=== PATIENT | female | born 1980 | race Two or more races ===

== ENCOUNTER 2023-09-27 12:35 | Inpatient (IN) | payer OTHER ==
[2023-09-27 14:22] VITALS: BMI 20.5
[2023-09-27] MEDS ORDERED: ONDANSETRON *ODT* 4 MG TABLET SL PRN (15:20)
[2023-09-27] MEDS ORDERED: DICYCLOMINE HCL 10 MG CAPSULE PO PRN (15:20)
[2023-09-27] MEDS ORDERED: BISMUTH SUBSALICYLATE 524 MG/30 ML PO PRN (15:20)
[2023-09-27] MEDS ORDERED: NICOTINE POLACRILEX 2 MG GUM BUC PRN (15:20)
[2023-09-27] MEDS ORDERED: chlordiazePOXIDE HCL 25 MG CAPSULE PO PRN (15:20)
[2023-09-27] MEDS ORDERED: ACETAMINOPHEN 325 MG TABLET (FP) PO PRN (15:20)
[2023-09-27] MEDS ORDERED: IBUPROFEN 600 MG TABLET (FP) PO PRN (15:20)
[2023-09-27] MEDS ORDERED: MAGNESIUM HYDROX 2400MG/30ML ORAL SUSPENSION 30 ML CUP PO PRN (15:20)
[2023-09-27] MEDS ORDERED: NALOXONE HCL 0.4 MG/ML VIAL IM PRN (15:20)
[2023-09-27] MEDS ORDERED: LOPERAMIDE HCL 2 MG CAPSULE PO PRN (15:20)
[2023-09-27] MEDS ORDERED: BENZOCAINE/MENTHOL (CHLORASEPTIC ) LOZENGE MM PRN (15:20)
[2023-09-27] MEDS ORDERED: guaiFENesin 600 MG TABLET.ER (FP) PO PRN (15:20)
[2023-09-27] MEDS ORDERED: POLYETHYLENE GLYCOL (HEALTHYLAX) 3350 17 GM PACKET PO PRN (15:20)
[2023-09-27] MEDS ORDERED: IBUPROFEN 400 MG TABLET (FP) PO PRN (15:20)
[2023-09-27] MEDS ORDERED: MAG HYDROX/AL HYDROX/SIMETH 30 ML UNIT-DOSE CUP PO PRN (15:20)
[2023-09-27] MEDS ORDERED: BENZONATATE 200 MG CAPSULE PO PRN (15:20)
[2023-09-27] MEDS ORDERED: NALOXONE HCL (KLOXXADO) 8 MG SPRAY NS PRN (15:20)
[2023-09-27] MEDS ORDERED: chlordiazePOXIDE HCL 25 MG CAPSULE ONE (16:41)
[2023-09-27] MEDS: chlordiazePOXIDE HCL 25 MG CAPSULE PO SCH ×2 (16:47→22:28)
[2023-09-27] MEDS: hydrOXYzine PAMOATE 25 MG CAPSULE (FP) PO PRN (18:08)
[2023-09-27] MEDS: MELATONIN 5 MG TABLETS PO SCH (22:28)
[2023-09-27] MEDS: THIAMINE HCL 100 MG TABLET (FP) PO SCH (22:29)
[2023-09-28] MEDS: chlordiazePOXIDE HCL 25 MG CAPSULE PO SCH ×4 (05:14→22:27)
[2023-09-28] MEDS: hydrOXYzine PAMOATE 25 MG CAPSULE (FP) PO PRN ×3 (10:09→22:27)
[2023-09-28] MEDS: PRENATAL VITAMINS W/ FOLIC ACID TABLET (FP) PO SCH (10:09)
[2023-09-28 11:14] LABS: CHLORIDE 105 mmol/L (98-107); POTASSIUM 4.4 mmol/L (3.5-5.1); SODIUM 138 mmol/L (136-145)
[2023-09-28 11:18] LABS: GLUCOSE,RANDOM 105 mg/dL (74-106)
[2023-09-28 11:19] LABS: CALCIUM 9.7 mg/dL (8.5-10.1)
[2023-09-28 11:20] LABS: ALBUMIN 3.7 g/dl (3.4-5.0); ANION GAP 5 mmol/L (4-13); BLOOD UREA NITROGEN 12.9 mg/dL (7-18); CO2 28 mmol/L (21-32)
[2023-09-28 11:22] LABS: CREATININE 0.6 mg/dL (0.55-1.3); SGOT/AST 106 U/L (15-37); SGPT/ALT 92 U/L (13-61)
[2023-09-28 11:23] LABS: BILIRUBIN,TOTAL 0.8 mg/dL (0.2-1)
[2023-09-28 11:24] LABS: ALK PHOS 151 U/L (45-117); TOT PROT 7.2 g/dl (6.4-8.2)
[2023-09-28 11:33] LABS: HEMATOCRIT 38.8 % (32.4-45.2); MCH 31.5 pg (25.7-33.7); MCHC 33.6 g/dl (32.0-36.0); MEAN CELL VOLUME 93.7 fl (80-96); MEAN PLT VOLUME 7.7 fl (7.5-11.1); PLATELET COUNT 211 10^3/uL (134-434); RBC 4.14 M/mm3 (3.60-5.2); RDW 13.4 % (11.6-15.6); WHITE BLOOD COUNT 3.4 K/mm3 (4.0-10.0)
[2023-09-28] MEDS: MELATONIN 5 MG TABLETS PO SCH (22:26)
[2023-09-28] MEDS: THIAMINE HCL 100 MG TABLET (FP) PO SCH (22:26)
[2023-09-29] MEDS: chlordiazePOXIDE HCL 25 MG CAPSULE PO SCH ×4 (05:45→22:06)
[2023-09-29] MEDS: hydrOXYzine PAMOATE 25 MG CAPSULE (FP) PO PRN (05:46)
[2023-09-29] MEDS: METHOCARBAMOL 500 MG TABLET PO PRN (10:13)
[2023-09-29] MEDS: amLODIPine BESYLATE 10 MG TABLET (FP) PO SCH (10:13)
[2023-09-29] MEDS: PRENATAL VITAMINS W/ FOLIC ACID TABLET (FP) PO SCH (10:13)
[2023-09-29] MEDS: THIAMINE HCL 100 MG TABLET (FP) PO SCH (22:06)
[2023-09-29] MEDS: MELATONIN 5 MG TABLETS PO SCH (22:06)
[2023-09-30] MEDS ORDERED: chlordiazePOXIDE HCL 10 MG CAPSULE PO PRN
[2023-09-30] MEDS: hydrOXYzine PAMOATE 25 MG CAPSULE (FP) PO PRN ×2 (00:06→22:20)
[2023-09-30] MEDS: METHOCARBAMOL 500 MG TABLET PO PRN (00:06)
[2023-09-30] MEDS: chlordiazePOXIDE HCL 10 MG CAPSULE PO SCH ×4 (05:30→22:19)
[2023-09-30] MEDS: PRENATAL VITAMINS W/ FOLIC ACID TABLET (FP) PO SCH (10:23)
[2023-09-30] MEDS: amLODIPine BESYLATE 10 MG TABLET (FP) PO SCH (10:23)
[2023-09-30] MEDS ORDERED: SUVOREXANT 10 MG TABLET PO PRN (22:00)
[2023-09-30] MEDS: THIAMINE HCL 100 MG TABLET (FP) PO SCH (22:19)
[2023-10-01] MEDS: chlordiazePOXIDE HCL 10 MG CAPSULE PO SCH ×2 (05:38→17:24)
[2023-10-01] MEDS: amLODIPine BESYLATE 10 MG TABLET (FP) PO SCH (09:13)
[2023-10-01] MEDS: PRENATAL VITAMINS W/ FOLIC ACID TABLET (FP) PO SCH (09:13)
[2023-10-01] MEDS: hydrOXYzine PAMOATE 25 MG CAPSULE (FP) PO PRN ×3 (10:23→22:21)
[2023-10-01] MEDS ORDERED: SUVOREXANT 15 MG TABLET PO PRN (22:00)
[2023-10-01] MEDS: THIAMINE HCL 100 MG TABLET (FP) PO SCH (22:19)
[2023-10-01] MEDS: METHOCARBAMOL 500 MG TABLET PO PRN (22:21)
[2023-10-02] MEDS ORDERED: chlordiazePOXIDE HCL 10 MG CAPSULE PO ONE (05:00)
[2023-10-02] MEDS: hydrOXYzine PAMOATE 25 MG CAPSULE (FP) PO PRN (05:31)
[2023-10-02 08:53] VITALS: BP 123/82; PULSE 87; RESP 16; TEMP 97.3
[2023-10-02] MEDS: PRENATAL VITAMINS W/ FOLIC ACID TABLET (FP) PO SCH (09:07)
[2023-10-02] MEDS: amLODIPine BESYLATE 10 MG TABLET (FP) PO SCH (09:07)
== END 2023-10-02 10:30 | disposition home or self-care (01) | DRG 775 ==
LOC: YASAS 12:35 → Y6N 15:50
PROVIDERS: ADMIT Allergy & Immunology; ATTEND Surgery
PROC: HZ2ZZZZ Detoxification Services for Substance Abuse Treatment (ICD-10-PCS; principal; 2023-09-26)
DX: F10.230 Alcohol dependence with withdrawal, uncomplicated (principal); F17.210 Nicotine dependence, cigarettes, uncomplicated; F10.282 Alcohol dependence with alcohol-induced sleep disorder; F10.24 Alcohol dependence with alcohol-induced mood disorder; F41.9 Anxiety disorder, unspecified; F32.A Depression, unspecified; I10 Essential (primary) hypertension; Z62.810 Personal history of physical and sexual abuse in childhood; Z91.410 Personal history of adult physical and sexual abuse
CPT/HCPCS: 36415; 80053; 80307; 81025; 85027; 86780; 87635

== ENCOUNTER 2023-12-01 11:17 | Inpatient (IN) | payer OTHER ==
[2023-12-01 12:24] VITALS: BMI 22.3
[2023-12-01] MEDS ORDERED: IBUPROFEN 400 MG TABLET (FP) PO PRN (13:34)
[2023-12-01] MEDS ORDERED: NALOXONE HCL (KLOXXADO) 8 MG SPRAY NS PRN (13:34)
[2023-12-01] MEDS ORDERED: BENZONATATE 200 MG CAPSULE PO PRN (13:34)
[2023-12-01] MEDS ORDERED: POLYETHYLENE GLYCOL (HEALTHYLAX) 3350 17 GM PACKET PO PRN (13:34)
[2023-12-01] MEDS ORDERED: MAG HYDROX/AL HYDROX/SIMETH 30 ML UNIT-DOSE CUP PO PRN (13:34)
[2023-12-01] MEDS ORDERED: BENZOCAINE/MENTHOL (CHLORASEPTIC ) LOZENGE MM PRN (13:34)
[2023-12-01] MEDS ORDERED: guaiFENesin 600 MG TABLET.ER (FP) PO PRN (13:34)
[2023-12-01] MEDS ORDERED: NALOXONE HCL 0.4 MG/ML VIAL IM PRN (13:34)
[2023-12-01] MEDS ORDERED: LOPERAMIDE HCL 2 MG CAPSULE PO PRN (13:34)
[2023-12-01] MEDS ORDERED: MAGNESIUM HYDROX 2400MG/30ML ORAL SUSPENSION 30 ML CUP PO PRN (13:34)
[2023-12-01] MEDS ORDERED: IBUPROFEN 600 MG TABLET (FP) PO PRN (13:34)
[2023-12-01] MEDS ORDERED: NICOTINE POLACRILEX 2 MG GUM BUC PRN (13:34)
[2023-12-01] MEDS ORDERED: ACETAMINOPHEN 325 MG TABLET (FP) PO PRN (13:34)
[2023-12-01] MEDS ORDERED: BISMUTH SUBSALICYLATE 524 MG/30 ML PO PRN (13:34)
[2023-12-01] MEDS ORDERED: DICYCLOMINE HCL 10 MG CAPSULE PO PRN (13:34)
[2023-12-01] MEDS ORDERED: chlordiazePOXIDE HCL 25 MG CAPSULE ONE (14:06)
[2023-12-01] MEDS: chlordiazePOXIDE HCL 25 MG CAPSULE PO PRN (14:13)
[2023-12-01] MEDS: hydrOXYzine PAMOATE 25 MG CAPSULE (FP) PO PRN (14:37)
[2023-12-01] MEDS: chlordiazePOXIDE HCL 25 MG CAPSULE PO SCH (16:52)
[2023-12-01 17:45] LABS: HIV INTERPRETATION NEGATIVE (NEGATIVE)
[2023-12-01] MEDS: ONDANSETRON *ODT* 4 MG TABLET SL PRN (19:29)
[2023-12-01] MEDS: MELATONIN 5 MG TABLETS PO SCH (22:12)
[2023-12-01] MEDS: THIAMINE HCL 100 MG TABLET (FP) PO SCH (22:12)
[2023-12-02 09:49] VITALS: RESP 16
[2023-12-02] MEDS: PRENATAL VITAMINS W/ FOLIC ACID TABLET (FP) PO SCH (10:10)
[2023-12-02] MEDS: amLODIPine BESYLATE 10 MG TABLET (FP) PO SCH (10:10)
[2023-12-02] MEDS: NICOTINE 14 MG/24 HOURS TOPICAL PATCH TD SCH (10:10)
[2023-12-02 11:44] LABS: POTASSIUM 4.3 mmol/L (3.5-5.1)
[2023-12-02 11:49] LABS: BLOOD UREA NITROGEN 10.8 mg/dL (7-18); CALCIUM 9.2 mg/dL (8.5-10.1)
[2023-12-02 11:52] LABS: CREATININE 0.7 mg/dL (0.55-1.3)
[2023-12-02 11:54] LABS: BILIRUBIN,TOTAL 0.5 mg/dL (0.2-1); TOT PROT 8.3 g/dl (6.4-8.2)
[2023-12-02 12:03] LABS: HEMATOCRIT 38.1 % (32.4-45.2); HEMOGLOBIN 12.6 GM/dL (10.7-15.3); MCH 30.4 pg (25.7-33.7); MCHC 33.1 g/dl (32.0-36.0); MEAN CELL VOLUME 91.8 fl (80-96); MEAN PLT VOLUME 7.4 fl (7.5-11.1); PLATELET COUNT 197 10^3/uL (134-434); RBC 4.15 M/mm3 (3.60-5.2); RDW 12.6 % (11.6-15.6); WHITE BLOOD COUNT 5.9 K/mm3 (4.0-10.0)
[2023-12-02 13:25] VITALS: BP 140/82; PULSE 90; TEMP 96.9
[2023-12-02] MEDS: METHOCARBAMOL 500 MG TABLET PO PRN (16:48)
[2023-12-03] MEDS ORDERED: chlordiazePOXIDE HCL 25 MG CAPSULE PO SCH (05:00)
[2023-12-04] MEDS ORDERED: chlordiazePOXIDE HCL 10 MG CAPSULE PO PRN
[2023-12-04] MEDS ORDERED: chlordiazePOXIDE HCL 10 MG CAPSULE PO SCH (05:00)
[2023-12-05] MEDS ORDERED: chlordiazePOXIDE HCL 10 MG CAPSULE PO SCH (05:00)
[2023-12-06] MEDS ORDERED: chlordiazePOXIDE HCL 10 MG CAPSULE PO ONE (05:00)
== END 2023-12-02 16:55 | disposition left against medical advice (07) | DRG 770 ==
LOC: YASAS 11:17 → Y3N 13:58
PROVIDERS: ADMIT Allergy & Immunology; ATTEND Allergy & Immunology
PROC: HZ2ZZZZ Detoxification Services for Substance Abuse Treatment (ICD-10-PCS; principal; 2023-12-01)
DX: F10.230 Alcohol dependence with withdrawal, uncomplicated (principal); F12.20 Cannabis dependence, uncomplicated; F17.210 Nicotine dependence, cigarettes, uncomplicated; F32.A Depression, unspecified; I10 Essential (primary) hypertension; Z62.810 Personal history of physical and sexual abuse in childhood; Z91.410 Personal history of adult physical and sexual abuse; Z63.8 Other specified problems related to primary support group; Z91.199 Patient's noncompliance with other medical treatment and regimen due to unspecified reason
CPT/HCPCS: 36415; 80053; 80307; 85027; 86780; 87389; 87635; 87811; Q0162

== ENCOUNTER 2024-05-03 10:29 | Inpatient (IN) | payer OTHER ==
[2024-05-03] MEDS: chlordiazePOXIDE HCL 25 MG CAPSULE PO ONE (00:42)
[2024-05-03 11:09] VITALS: BMI 22.3
[2024-05-03] MEDS ORDERED: BISMUTH SUBSALICYLATE 262 MG/15 ML BTL PO PRN (11:46)
[2024-05-03] MEDS ORDERED: POLYETHYLENE GLYCOL (HEALTHYLAX) 3350 17 GM PACKET PO PRN (11:46)
[2024-05-03] MEDS ORDERED: IBUPROFEN 600 MG TABLET (FP) PO PRN (11:46)
[2024-05-03] MEDS ORDERED: NALOXONE HCL 0.4 MG/ML VIAL IM PRN (11:46)
[2024-05-03] MEDS ORDERED: NALOXONE (NARCAN) HCL 4 MG/0.1 ML SPRAY NS PRN (11:46)
[2024-05-03] MEDS ORDERED: chlordiazePOXIDE HCL 25 MG CAPSULE PO PRN (11:46)
[2024-05-03] MEDS ORDERED: guaiFENesin 600 MG TABLET.ER (FP) PO PRN (11:46)
[2024-05-03] MEDS ORDERED: MAGNESIUM HYDROX 2400MG/30ML ORAL SUSPENSION 30 ML CUP PO PRN (11:46)
[2024-05-03] MEDS ORDERED: IBUPROFEN 400 MG TABLET (FP) PO PRN (11:46)
[2024-05-03] MEDS ORDERED: BENZONATATE 200 MG CAPSULE PO PRN (11:46)
[2024-05-03] MEDS ORDERED: BENZOCAINE/MENTHOL (CHLORASEPTIC ) LOZENGE MM PRN (11:46)
[2024-05-03] MEDS ORDERED: ACETAMINOPHEN 325 MG TABLET (FP) PO PRN (11:46)
[2024-05-03] MEDS ORDERED: LOPERAMIDE HCL 2 MG CAPSULE PO PRN (11:46)
[2024-05-03] MEDS ORDERED: ONDANSETRON *ODT* 4 MG TABLET ONE (12:49)
[2024-05-03] MEDS ORDERED: chlordiazePOXIDE HCL 25 MG CAPSULE ONE (12:49)
[2024-05-03] MEDS: amLODIPine BESYLATE 10 MG TABLET (FP) PO SCH (12:57)
[2024-05-03] MEDS: ONDANSETRON *ODT* 4 MG TABLET SL PRN (13:03)
[2024-05-03] MEDS: PRENATAL VITAMINS W/ FOLIC ACID TABLET (FP) PO SCH (13:03)
[2024-05-03] MEDS ORDERED: amLODIPine BESYLATE 5 MG TABLET (FP) ONE (13:11)
[2024-05-03] MEDS: hydrOXYzine PAMOATE 25 MG CAPSULE (FP) PO PRN (14:49)
[2024-05-03] MEDS: chlordiazePOXIDE HCL 25 MG CAPSULE PO SCH (17:27)
[2024-05-03] MEDS: MAG HYDROX/AL HYDROX/SIMETH 30 ML UNIT-DOSE CUP PO PRN (17:28)
[2024-05-03 18:17] LABS: HIV INTERPRETATION NEGATIVE (NEGATIVE)
[2024-05-03] MEDS: MELATONIN 5 MG TABLETS PO SCH (22:14)
[2024-05-03] MEDS: THIAMINE 100 MG TABLET PO SCH (22:14)
[2024-05-03] MEDS: GABAPENTIN 400 MG CAPSULE PO SCH (22:15)
[2024-05-03] MEDS: QUEtiapine FUMARATE 50 MG TABLET PO SCH (22:15)
[2024-05-03] MEDS: DICYCLOMINE HCL 10 MG CAPSULE PO PRN (22:16)
[2024-05-04] MEDS: NICOTINE 7 MG/24 HOURS TOPICAL PATCH TD SCH (10:07)
[2024-05-04 12:57] LABS: HEMATOCRIT 37.8 % (32.4-45.2); HEMOGLOBIN 12.6 GM/dL (10.7-15.3); MCH 32.4 pg (25.7-33.7); MCHC 33.4 g/dl (32.0-36.0); MEAN PLT VOLUME 8.5 fl (7.5-11.1); PLATELET COUNT 111 10^3/uL (134-434); RDW 14.5 % (11.6-15.6)
[2024-05-04 13:07] LABS: ALBUMIN 4.6 g/dl (3.4-5.0)
[2024-05-04 13:09] LABS: CALCIUM 10.2 mg/dL (8.5-10.1)
[2024-05-04 13:11] LABS: BLOOD UREA NITROGEN 7.5 mg/dL (7-18)
[2024-05-04 13:14] LABS: BILIRUBIN,TOTAL 1.1 mg/dL (0.2-1); CREATININE 0.6 mg/dL (0.55-1.3); TOT PROT 8.5 g/dl (6.4-8.2)
[2024-05-04] MEDS: LACTULOSE 20 GM/30 ML UDC (FOR ORAL USE ONLY) PO SCH (17:22)
[2024-05-04] MEDS: LORazepam 2 MG TABLET PO SCH (17:23)
[2024-05-04] MEDS: METHOCARBAMOL 500 MG TABLET PO PRN (22:37)
[2024-05-05] MEDS ORDERED: chlordiazePOXIDE HCL 25 MG CAPSULE PO SCH (05:00)
[2024-05-05 17:01] LABS: POTASSIUM 4.3 mmol/L (3.5-5.1)
[2024-05-05 17:03] LABS: CALCIUM 10.3 mg/dL (8.5-10.1)
[2024-05-05 17:04] LABS: BLOOD UREA NITROGEN 16.3 mg/dL (7-18)
[2024-05-05 17:07] LABS: CREATININE 0.7 mg/dL (0.55-1.3)
[2024-05-05 17:10] LABS: BILIRUBIN,TOTAL 0.7 mg/dL (0.2-1); TOT PROT 7.9 g/dl (6.4-8.2)
[2024-05-05] MEDS: LORazepam 1 MG TABLET PO PRN (19:34)
[2024-05-06] MEDS ORDERED: chlordiazePOXIDE HCL 10 MG CAPSULE PO PRN
[2024-05-06] MEDS ORDERED: chlordiazePOXIDE HCL 10 MG CAPSULE PO SCH (05:00)
[2024-05-06] MEDS: LORazepam 1 MG TABLET PO SCH (05:54)
[2024-05-06 09:37] VITALS: BP 129/81; PULSE 98; RESP 18; TEMP 97.6
[2024-05-07] MEDS ORDERED: LORazepam 0.5 MG TABLET PO SCH (05:00)
[2024-05-07] MEDS ORDERED: chlordiazePOXIDE HCL 10 MG CAPSULE PO SCH (05:00)
[2024-05-08] MEDS ORDERED: chlordiazePOXIDE HCL 10 MG CAPSULE PO ONE (05:00)
[2024-05-08] MEDS ORDERED: LORazepam 0.5 MG TABLET PO ONE (05:00)
== END 2024-05-06 10:23 | disposition other institution (70) | DRG 775 ==
LOC: YASAS 10:29 → Y6N 12:21
PROVIDERS: ADMIT Allergy & Immunology; ATTEND Surgery
PROC: HZ2ZZZZ Detoxification Services for Substance Abuse Treatment (ICD-10-PCS; principal; 2024-05-03)
DX: F10.230 Alcohol dependence with withdrawal, uncomplicated (principal); F12.20 Cannabis dependence, uncomplicated; F17.210 Nicotine dependence, cigarettes, uncomplicated; F32.A Depression, unspecified; G62.9 Polyneuropathy, unspecified; R74.8 Abnormal levels of other serum enzymes; R79.89 Other specified abnormal findings of blood chemistry; Z62.810 Personal history of physical and sexual abuse in childhood; Z91.410 Personal history of adult physical and sexual abuse; Z63.0 Problems in relationship with spouse or partner; Z63.8 Other specified problems related to primary support group
CPT/HCPCS: 36415; 80053; 80305; 80307; 81025; 82140; 85027; 86780; 87389; 93005; 93010; Q0162

== ENCOUNTER 2024-07-20 20:07 | Inpatient (IN) | payer OTHER ==
[2024-07-20 21:02] VITALS: BMI 23.5
[2024-07-20] MEDS ORDERED: MAG HYDROX/AL HYDROX/SIMETH 30 ML UNIT-DOSE CUP PO PRN (22:00)
[2024-07-20] MEDS ORDERED: POLYETHYLENE GLYCOL (HEALTHYLAX) 3350 17 GM PACKET PO PRN (22:00)
[2024-07-20] MEDS ORDERED: MAGNESIUM HYDROX 2400MG/30ML ORAL SUSPENSION 30 ML CUP PO PRN (22:00)
[2024-07-20] MEDS ORDERED: BENZONATATE 200 MG CAPSULE PO PRN (22:00)
[2024-07-20] MEDS ORDERED: LOPERAMIDE HCL 2 MG CAPSULE PO PRN (22:00)
[2024-07-20] MEDS ORDERED: NALOXONE HCL 0.4 MG/ML VIAL IM PRN (22:00)
[2024-07-20] MEDS ORDERED: DICYCLOMINE HCL 10 MG CAPSULE PO PRN (22:00)
[2024-07-20] MEDS ORDERED: IBUPROFEN 400 MG TABLET (FP) PO PRN (22:00)
[2024-07-20] MEDS ORDERED: BISMUTH SUBSALICYLATE 524 MG/30 ML PO PRN (22:00)
[2024-07-20] MEDS ORDERED: IBUPROFEN 600 MG TABLET (FP) PO PRN (22:00)
[2024-07-20] MEDS ORDERED: NALOXONE (NARCAN) HCL 4 MG/0.1 ML SPRAY NS PRN (22:00)
[2024-07-20] MEDS ORDERED: BENZOCAINE/MENTHOL (CHLORASEPTIC ) LOZENGE MM PRN (22:00)
[2024-07-20] MEDS ORDERED: NICOTINE POLACRILEX 4 MG GUM BUC PRN (22:00)
[2024-07-20] MEDS ORDERED: guaiFENesin 600 MG TABLET.ER (FP) PO PRN (22:00)
[2024-07-20] MEDS ORDERED: diazePAM 5 MG TABLET ONE ×2 (22:13→23:29)
[2024-07-20] MEDS ORDERED: MELATONIN 5 MG TABLETS ONE (22:13)
[2024-07-20] MEDS ORDERED: hydrOXYzine PAMOATE 25 MG CAPSULE (FP) PO ONE (22:16)
[2024-07-20] MEDS ORDERED: ACETAMINOPHEN 325 MG TABLET (FP) ONE (22:16)
[2024-07-20] MEDS: THIAMINE 100 MG TABLET PO SCH (22:20)
[2024-07-20] MEDS: hydrOXYzine PAMOATE 25 MG CAPSULE (FP) PO PRN (22:20)
[2024-07-20] MEDS: MELATONIN 5 MG TABLETS PO SCH (22:20)
[2024-07-20] MEDS: diazePAM 5 MG TABLET PO ONE (22:20)
[2024-07-20] MEDS: ACETAMINOPHEN 325 MG TABLET (FP) PO PRN (22:21)
[2024-07-20] MEDS: diazePAM 5 MG TABLET PO SCH (23:51)
[2024-07-21] MEDS: PRENATAL VITAMINS W/ FOLIC ACID TABLET (FP) PO SCH (10:44)
[2024-07-21] MEDS: NICOTINE 14 MG/24 HOURS TOPICAL PATCH TD SCH (10:44)
[2024-07-21] MEDS: ONDANSETRON *ODT* 4 MG TABLET SL PRN (10:47)
[2024-07-21] MEDS: NALTREXONE HCL 50 MG TABLET PO ONE (11:45)
[2024-07-21] MEDS: amLODIPine BESYLATE 10 MG TABLET (FP) PO SCH (11:46)
[2024-07-21] MEDS: GABAPENTIN 400 MG CAPSULE PO SCH (13:27)
[2024-07-21] MEDS: SUVOREXANT 10 MG TABLET PO PRN (22:22)
[2024-07-22] MEDS: diazePAM 5 MG TABLET PO SCH (05:54)
[2024-07-22] MEDS: NALTREXONE HCL 50 MG TABLET PO SCH (10:10)
[2024-07-22] MEDS: diazePAM 5 MG TABLET PO PRN (11:35)
[2024-07-22] MEDS: METHOCARBAMOL 500 MG TABLET PO PRN (23:03)
[2024-07-23] MEDS: diazePAM 5 MG TABLET PO SCH (05:51)
[2024-07-23 09:44] VITALS: BP 126/94; PULSE 74; RESP 16; TEMP 97.8
[2024-07-24] MEDS ORDERED: diazePAM 5 MG TABLET PO ONE (06:00)
== END 2024-07-23 12:12 | disposition home or self-care (01) | DRG 775 ==
LOC: YASAS 20:07 → Y6N 23:08
PROVIDERS: ADMIT Allergy & Immunology; ATTEND Surgery
PROC: HZ2ZZZZ Detoxification Services for Substance Abuse Treatment (ICD-10-PCS; principal; 2024-07-20)
DX: F10.230 Alcohol dependence with withdrawal, uncomplicated (principal); F12.20 Cannabis dependence, uncomplicated; F17.210 Nicotine dependence, cigarettes, uncomplicated; F10.282 Alcohol dependence with alcohol-induced sleep disorder; F10.280 Alcohol dependence with alcohol-induced anxiety disorder; F10.24 Alcohol dependence with alcohol-induced mood disorder; G62.9 Polyneuropathy, unspecified; I10 Essential (primary) hypertension
CPT/HCPCS: 80305; 80307; 81025; 93005; 93010; Q0162

== ENCOUNTER 2024-09-30 13:08 | Inpatient (IN) | payer OTHER ==
[2024-09-30 13:43] VITALS: BMI 21.6
[2024-09-30] MEDS ORDERED: POLYETHYLENE GLYCOL (HEALTHYLAX) 3350 17 GM PACKET PO PRN (15:04)
[2024-09-30] MEDS ORDERED: BISMUTH SUBSALICYLATE 262 MG/15 ML BTL PO PRN (15:04)
[2024-09-30] MEDS ORDERED: ACETAMINOPHEN 325 MG TABLET (FP) PO PRN (15:04)
[2024-09-30] MEDS ORDERED: LOPERAMIDE HCL 2 MG CAPSULE PO PRN (15:04)
[2024-09-30] MEDS ORDERED: NICOTINE POLACRILEX 2 MG GUM BUC PRN (15:04)
[2024-09-30] MEDS ORDERED: NALOXONE (NARCAN) HCL 4 MG/0.1 ML SPRAY NS PRN (15:04)
[2024-09-30] MEDS ORDERED: BENZONATATE 200 MG CAPSULE PO PRN (15:04)
[2024-09-30] MEDS ORDERED: MAGNESIUM HYDROX 2400MG/30ML ORAL SUSPENSION 30 ML CUP PO PRN (15:04)
[2024-09-30] MEDS ORDERED: IBUPROFEN 400 MG TABLET (FP) PO PRN (15:04)
[2024-09-30] MEDS ORDERED: ONDANSETRON *ODT* 4 MG TABLET SL PRN (15:04)
[2024-09-30] MEDS ORDERED: DICYCLOMINE HCL 10 MG CAPSULE PO PRN (15:04)
[2024-09-30] MEDS ORDERED: MAG HYDROX/AL HYDROX/SIMETH 30 ML UNIT-DOSE CUP PO PRN (15:04)
[2024-09-30] MEDS: hydrOXYzine PAMOATE 25 MG CAPSULE (FP) PO PRN (17:18)
[2024-09-30] MEDS: METHOCARBAMOL 500 MG TABLET PO PRN (17:18)
[2024-09-30] MEDS: IBUPROFEN 600 MG TABLET (FP) PO PRN (17:20)
[2024-09-30] MEDS: MELATONIN 5 MG TABLETS PO SCH (22:50)
[2024-09-30] MEDS: diazePAM 5 MG TABLET PO PRN (22:50)
[2024-09-30] MEDS: THIAMINE 100 MG TABLET PO SCH (22:50)
[2024-09-30] MEDS: diazePAM 5 MG TABLET PO SCH (23:19)
[2024-10-01] MEDS: PRENATAL VITAMINS W/ FOLIC ACID TABLET (FP) PO SCH (10:17)
[2024-10-01] MEDS: NICOTINE 14 MG/24 HOURS TOPICAL PATCH TD SCH (10:17)
[2024-10-01] MEDS: FLU VACCINE (FLULAVAL) PF 45 MCG/0.5 ML SYRINGE 2024-2025 IM ONE (11:14)
[2024-10-01] MEDS: guaiFENesin 600 MG TABLET.ER (FP) PO PRN (11:19)
[2024-10-01] MEDS: BENZOCAINE/MENTHOL (CHLORASEPTIC ) LOZENGE MM PRN (11:20)
[2024-10-01 14:22] LABS: HEMATOCRIT 35.4 % (32.4-45.2); HEMOGLOBIN 11.8 GM/dL (10.7-15.3); MCH 32.9 pg (25.7-33.7); MCHC 33.5 g/dl (32.0-36.0); MEAN CELL VOLUME 98.3 fl (80-96); MEAN PLT VOLUME 8.4 fl (7.5-11.1); PLATELET COUNT 112 10^3/uL (134-434); RDW 15.1 % (11.6-15.6); WHITE BLOOD COUNT 2.9 K/mm3 (4.0-10.0)
[2024-10-01 14:24] LABS: CHLORIDE 107 mmol/L (98-107); POTASSIUM 3.3 mmol/L (3.5-5.1); SODIUM 140 mmol/L (136-145)
[2024-10-01 14:30] LABS: ALBUMIN 3.2 g/dl (3.4-5.0); ANION GAP 8 mmol/L (4-13); BLOOD UREA NITROGEN 8.4 mg/dL (7-18); CO2 25 mmol/L (21-32); GLUCOSE,RANDOM 179 mg/dL (74-106)
[2024-10-01 14:33] LABS: CREATININE 0.7 mg/dL (0.55-1.3); SGOT/AST 161 U/L (15-37); SGPT/ALT 106 U/L (13-61)
[2024-10-01 14:35] LABS: BILIRUBIN,TOTAL 0.6 mg/dL (0.2-1); TOT PROT 6.6 g/dl (6.4-8.2)
[2024-10-01 14:36] LABS: ALK PHOS 144 U/L (45-117)
[2024-10-01 15:54] LABS: HIV INTERPRETATION NEGATIVE (NEGATIVE)
[2024-10-01] MEDS: SUVOREXANT 10 MG TABLET PO PRN (22:17)
[2024-10-02] MEDS: diazePAM 5 MG TABLET PO SCH (06:00)
[2024-10-02] MEDS: amLODIPine BESYLATE 10 MG TABLET (FP) PO SCH (10:08)
[2024-10-02] MEDS: POTASSIUM CHLORIDE TABS 20 MEQ TABLET.ER (FP) PO SCH (16:19)
[2024-10-02] MEDS: GABAPENTIN 100 MG CAPSULE PO SCH (21:56)
[2024-10-03] MEDS: diazePAM 5 MG TABLET PO SCH (05:54)
[2024-10-03 12:46] LABS: BASO % 0.8 % (0-2.0); EOS % 4.4 % (0-4.5); HEMATOCRIT 37.8 % (32.4-45.2); HEMOGLOBIN 12.7 GM/dL (10.7-15.3); LYMPH % 38.8 % (8-40); MCH 33.2 pg (25.7-33.7); MCHC 33.6 g/dl (32.0-36.0); MEAN CELL VOLUME 98.9 fl (80-96); MEAN PLT VOLUME 8.4 fl (7.5-11.1); MONO % 8.5 % (3.8-10.2); NEUT % 47.5 % (42.8-82.8); PLATELET COUNT 146 10^3/uL (134-434); RBC 3.82 M/mm3 (3.60-5.2); RDW 15.6 % (11.6-15.6); WHITE BLOOD COUNT 3.7 K/mm3 (4.0-10.0)
[2024-10-04] MEDS: diazePAM 5 MG TABLET PO ONE (05:25)
[2024-10-04 06:12] VITALS: RESP 18
[2024-10-04] MEDS: NALOXONE (NYS OPIOID OVERDOSE PROGRAM) 4 MG/0.1 ML SPRAY NS SCH (10:00)
[2024-10-04 10:09] VITALS: BP 121/85; PULSE 85; TEMP 97.6
== END 2024-10-04 10:07 | disposition home or self-care (01) | DRG 775 ==
LOC: YASAS 13:08 → Y6N 15:29
PROVIDERS: ADMIT Allergy & Immunology; ATTEND Surgery
PROC: HZ2ZZZZ Detoxification Services for Substance Abuse Treatment (ICD-10-PCS; principal; 2024-09-30)
DX: F10.230 Alcohol dependence with withdrawal, uncomplicated (principal); F12.20 Cannabis dependence, uncomplicated; F17.210 Nicotine dependence, cigarettes, uncomplicated; F10.282 Alcohol dependence with alcohol-induced sleep disorder; F10.280 Alcohol dependence with alcohol-induced anxiety disorder; F10.24 Alcohol dependence with alcohol-induced mood disorder; F41.1 Generalized anxiety disorder; G62.9 Polyneuropathy, unspecified; I10 Essential (primary) hypertension; R79.89 Other specified abnormal findings of blood chemistry; R74.8 Abnormal levels of other serum enzymes; Z62.810 Personal history of physical and sexual abuse in childhood; Z91.410 Personal history of adult physical and sexual abuse; Z63.0 Problems in relationship with spouse or partner; Z63.8 Other specified problems related to primary support group
CPT/HCPCS: 36415; 80053; 80305; 80307; 81025; 83036; 84132; 84450; 85025; 85027; 86780; 86803; 87389; 90656; 93005; 93010; G0008